=== PATIENT | female | born 1970 | race African-American/Black ===

== ENCOUNTER 2018-01-26 16:21 | Outpatient (CLI) | payer OTHER ==
[~2018-01-26 16:21] MED LIST: CLARITIN10 MG PO; GLUCOTROL10 MG PO; GLUMETZA1000 MG PO; HYZAAR 100/25 T1 TAB PO; METFORMIN HCL500 MG PO; NEURONTIN300 MG PO; PHENERGAN25 MG PO; PRILOSEC 40 MG PO; PRILOSEC20 MG; PRILOSEC20 MG PO; ROBITUSSIN COU237 ML PO; TOPROL XL50 MG PO; ZANTAC300 MG PO; ZITHROMAX500 MG PO
== END 2018-01-26 16:29 | disposition home or self-care (01) ==
LOC: RAD 16:21
DX: M54.9 Dorsalgia, unspecified (principal); M54.5 Low back pain

== ENCOUNTER → 2018-04-23 09:00 | Outpatient (CLI) | payer OTHER | END | disposition home or self-care (01) | LOC: LAB 09:00 | DX: E11.65 Type 2 diabetes mellitus with hyperglycemia (principal); I10 Essential (primary) hypertension; Z12.11 Encounter for screening for malignant neoplasm of colon ==

== ENCOUNTER 2018-07-24 15:09 | Outpatient (CLI) | payer OTHER | END 2018-07-24 15:13 | disposition home or self-care (01) | LOC: MAMO-SONO 15:09 | DX: Z12.31 Encounter for screening mammogram for malignant neoplasm of breast (principal); N60.01 Solitary cyst of right breast ==

== ENCOUNTER 2019-11-05 07:34 | Outpatient (CLI) | payer OTHER | END 2019-11-05 07:39 | disposition home or self-care (01) | LOC: LAB 07:34 | DX: E78.49 Other hyperlipidemia (principal); I11.9 Hypertensive heart disease without heart failure; I50.30 Unspecified diastolic (congestive) heart failure; D64.89 Other specified anemias; R10.84 Generalized abdominal pain; R80.8 Other proteinuria; E11.9 Type 2 diabetes mellitus without complications; E66.8 Other obesity; R06.09 Other forms of dyspnea ==

== ENCOUNTER 2021-04-07 08:23 | Outpatient (CLI) | payer OTHER | END 2021-04-07 15:00 | disposition home or self-care (01) | LOC: LAB 08:23 | PROVIDERS: ATTEND Emergency Medicine Pediatric Emergency Medicine | DX: Z03.818 Encounter for observation for suspected exposure to other biological agents ruled out (principal) ==

== ENCOUNTER 2021-04-21 07:18 | Outpatient (CLI) | payer OTHER | END 2021-04-21 07:23 | disposition home or self-care (01) | LOC: LAB 07:18 | DX: E11.65 Type 2 diabetes mellitus with hyperglycemia (principal); E78.49 Other hyperlipidemia; I10 Essential (primary) hypertension; E55.9 Vitamin D deficiency, unspecified ==

== ENCOUNTER → 2021-05-08 11:44 | Outpatient (CLI) | payer OTHER | END | disposition home or self-care (01) | LOC: LAB 11:44 | PROVIDERS: ATTEND Pediatrics Neonatal-Perinatal Medicine | DX: U07.1 COVID-19 (principal); R05 Cough; R50.9 Fever, unspecified ==

== ENCOUNTER 2021-05-10 08:11 | Outpatient (CLI) | payer OTHER | END 2021-05-10 09:15 | disposition home or self-care (01) | LOC: LAB 08:11 | PROVIDERS: ATTEND Emergency Medicine Pediatric Emergency Medicine | DX: Z03.818 Encounter for observation for suspected exposure to other biological agents ruled out (principal) ==

== ENCOUNTER 2021-05-10 11:00 | Outpatient (CLI) | payer OTHER | END 2021-05-10 12:00 | disposition home or self-care (01) | LOC: ASH CLINIC 11:00 | PROVIDERS: ATTEND General Practice | DX: Z23 Encounter for immunization (principal); U07.1 COVID-19 ==

== ENCOUNTER 2021-05-24 08:00 | Outpatient (CLI) | payer OTHER | END 2021-05-24 08:30 | disposition home or self-care (01) | LOC: PPH VACUNA 08:00 | PROVIDERS: ATTEND Emergency Medicine Pediatric Emergency Medicine | DX: Z23 Encounter for immunization (principal) ==

== ENCOUNTER 2021-08-11 06:51 | Outpatient (CLI) | payer OTHER | END 2021-08-11 06:52 | disposition home or self-care (01) | LOC: LAB 06:51 | PROVIDERS: ATTEND Internal Medicine | DX: E03.8 Other specified hypothyroidism (principal); E11.65 Type 2 diabetes mellitus with hyperglycemia; E78.49 Other hyperlipidemia ==

== ENCOUNTER 2021-08-11 08:00 | Outpatient (CLI) | payer OTHER | END 2021-08-11 09:00 | disposition home or self-care (01) | LOC: PPH VACUNA 08:00 | PROVIDERS: ATTEND Emergency Medicine Pediatric Emergency Medicine | DX: Z23 Encounter for immunization (principal) ==